=== PATIENT | male | born 1985 | race Hispanic/Latino ===

== ENCOUNTER 2017-10-09 13:57 | Emergency (ER) | payer SELFPAY ==
[2017-10-09 15:08] LABS: #Basophils 0.1 thou/uL (0.0-0.2); #Eosinphils 0.4 thou/uL (0.0-0.7); #Monocytes 0.7 thou/uL (0.11-0.59); #Neutrophils 5.9 thou/uL (1.40-6.50); %Basophils 0.7 % (0.0-1.0); %Eosinophils 4.4 % (0.0-10.0); %Lymphocytes 22.2 % (21.0-51.0); %Neutrophils 64.7 % (42.0-75.0); Hemoglobin 14.3 g/dL (14.0-18.0); Mean Corpuscular HGB CONC 34.2 g/dL (32.0-36.0); Mean Corpuscular Hemoglobin 27.7 pg (27.0-31.0); Mean Corpuscular Volume 80.9 fL (78.0-98.0); Mean Platelet Volume 6.6 fL (7.4-10.4); Platelet Count 278 thou/uL (130-400); RBC Distribution Width 12.2 % (11.5-14.5); Red Blood Cell (RBC) Count 5.18 mill/uL (4.70-6.10); White Blood Cell (WBC) Count 9.1 thou/uL (4.8-10.8)
[2017-10-09 15:30] LABS: ALT (SGPT) 37 U/L (8-55); AST (SGOT) 20 U/L (5-34); Alkaline Phosphatase 84 U/L (40-150); Anion Gap 14 mmol/L (10-20); BUN (Urea Nitrogen) 7 mg/dL (8.9-20.6); Bilirubin, Total 0.3 mg/dL (0.2-1.2); Calc. Creatinine Clearance 0 mL/min (70-130); Calcium 8.7 mg/dL (7.8-10.44); Carbon Dioxide 23 mmol/L (22-29); Chloride 104 mmol/L (98-107); Estimated GFR-MDRD Greater than 90; Globulin 3.1 g/dL (2.4-3.5); Glucose 151 mg/dL (70-105); Lipase 27 U/L (8-78); Potassium 3.4 mmol/L (3.5-5.1); Protein, Total 7.1 g/dL (6.0-8.3); Sodium 138 mmol/L (136-145)
--- NOTE | 2017-10-09 15:50 | CT ---
CT OF THE ABDOMEN AND PELVIS WITH IV CONTRAST 10/09/17 PROVIDED CLINICAL HISTORY: Abdominal hernia. FINDINGS: The visualized lung bases are free of significant opacity. There is diffuse fatty infiltration of the liver. the solid abdominal organs demonstrate an otherwise unremarkable CT appearance. There is a 7.1 cm fat containing supraumbilical ventral abdominal hernia . There is altered attenuation involving the herniated fat. There is no fluid density present. There is no bowel dilatation, inflammatory intraperitoneal fat stranding, free fluid or free air apparent. The osseous structures demonstrate no concerning lytic or blastic lesions. IMPRESSION: 1. Fat containing supraumbilical ventral abdominal hernia with inflammatory change involving the herniated fat. 2. Fatty infiltration of the liver. POS: DYLAN
== END 2017-10-09 15:50 | disposition home or self-care (01) ==
LOC: ERS 13:57
DX: K45.8 Other specified abdominal hernia without obstruction or gangrene (principal); F17.210 Nicotine dependence, cigarettes, uncomplicated
CPT/HCPCS: 74177; 80053; 83605; 83690; 85025; 96374; J2270

== ENCOUNTER 2019-02-23 07:29 | Emergency (ER) | payer BC, SELFPAY | END 2019-02-23 08:00 | disposition home or self-care (01) | LOC: ERS 07:29 | DX: K46.9 Unspecified abdominal hernia without obstruction or gangrene (principal); J45.909 Unspecified asthma, uncomplicated; F17.210 Nicotine dependence, cigarettes, uncomplicated | CPT/HCPCS: 99283 ==

== ENCOUNTER 2019-03-15 07:12 | Outpatient (CLI) | payer BC ==
[2019-03-15 15:33] LABS: Hemoglobin 14.8 g/dL (14.0-18.0); Mean Corpuscular HGB CONC 33.8 g/dL (32.0-36.0); Mean Corpuscular Hemoglobin 27.6 pg (27.0-31.0); Mean Corpuscular Volume 81.9 fL (78.0-98.0); Mean Platelet Volume 7.5 fL (7.4-10.4); Platelet Count 252 thou/uL (130-400); RBC Distribution Width 12.3 % (11.5-14.5); Red Blood Cell (RBC) Count 5.33 mill/uL (4.70-6.10); White Blood Cell (WBC) Count 9.1 thou/uL (4.8-10.8)
[2019-03-15 15:41] LABS: Anion Gap 11 mmol/L (10-20); BUN (Urea Nitrogen) 9 mg/dL (8.9-20.6); Calc. Creatinine Clearance 0 mL/min (70-130); Calcium 9.3 mg/dL (7.8-10.44); Carbon Dioxide 30 mmol/L (22-29); Chloride 102 mmol/L (98-107); Estimated GFR-MDRD Greater than 90; Glucose 103 mg/dL (70-105); Potassium 3.7 mmol/L (3.5-5.1); Sodium 139 mmol/L (136-145)
--- NOTE | 2019-03-16 11:10 | EKG ---
Test Reason : Blood Pressure : / mmHG Vent. Rate : 064 BPM Atrial Rate : 064 BPM P-R Int : 126 ms QRS Dur : 108 ms QT Int : 402 ms P-R-T Axes : 056 058 062 degrees QTc Int : 414 ms Normal sinus rhythm with sinus arrhythmia Normal ECG No previous ECGs available Confirmed by DR. Richard VILLARREAL ([id number]) on 03/16/2019 11:10:12 AM Referred By: ANNA Confirmed By:DR. Richard VILLARREAL
== END 2019-03-15 07:13 | disposition home or self-care (01) ==
LOC: LABBT 07:12
PROVIDERS: ATTEND Specialist
DX: Z01.818 Encounter for other preprocedural examination (principal); K42.9 Umbilical hernia without obstruction or gangrene
CPT/HCPCS: 80048; 85027; 93005; 93010

== ENCOUNTER 2019-03-17 06:48 | Day surgery (SDC) | payer BC ==
[2019-03-15 13:53] VITALS: BMI 42.8
--- NOTE | 2019-03-16 09:22 | HP ---
HISTORY OF PRESENT ILLNESS: Arden Chairez is a 33-year-old chefat [facility], [facility], in oven table. He has had a supraumbilical hernia for several years, that has become bothersome to him. He is 307 pounds, 42 BMI. He did have a CAT scan in 2018, that demonstrated hernia as supraumbilical. He did report to the emergency room on 02/23/2019, for this, but I was able to reduce it and discharged home without imaging. He reports now for evaluation. The patient is . ALLERGIES: NONE. SOCIAL HISTORY: Tobacco, 1 to 2 cigarettes a day. Alcohol, rarely socially. MEDICATIONS: None routinely. PAST SURGICAL HISTORY: Meniscectomy at young age. PAST MEDICAL HISTORY: Noncontributory. He has occasional asthma, REVIEW OF SYSTEMS: Ten-point, noncontributory. PHYSICAL EXAMINATION: VITAL SIGNS: 307 pounds, 5 feet 11 inches, 42 BMI. Blood pressure 144/72, heart rate 108, temperature 97.5 degrees. HEAD, EARS, EYES, NOSE, AND THROAT: Unremarkable. LUNGS: Clear to auscultation. CARDIAC: Regular rate and rhythm without murmur or gallop. ABDOMEN: Soft and obese. Supraumbilical hernia. I can reduce this. There was a small defect. EXTREMITIES: Unremarkable. ASSESSMENT AND PLAN: Supraumbilical hernia at umbilical level. He has a large hernia mass with a small defect. We would recommend robot repair using mesh. I have educated him as an increased risk of recurrence is associated with obesity and smoking. He did report to the emergency room with incarceration. I think with a small defect, it is reasonable to repair this, but I have encouraged weight loss. He would be a good weight-loss surgery candidate, but he is not interested in that right now. He understands risk of infection, bleeding, reoperation, recurrence of hernia associated with robot mesh repair of hernia, and consents. We will plan that next week. Job ID: [id number]
[2019-03-17] MEDS ORDERED: Bupivacaine PF 0.5% 30 ML VIAL ONE (08:49)
[2019-03-17] MEDS ORDERED: Lidocaine 1% w/Epinephrine 1:100K 20 ML VIAL ONE (08:49)
[2019-03-17] MEDS ORDERED: Fentanyl 100 MCG/2 ML VIAL ONE ×2 (08:52→11:10)
[2019-03-17] MEDS ORDERED: Gabapentin 300 MG CAP ONE (08:56)
[2019-03-17] MEDS ORDERED: Ketorolac Tromethamine 30 MG/ML VIAL ONE (08:56)
[2019-03-17] MEDS ORDERED: Acetaminophen 500 MG TAB ONE (08:56)
[2019-03-17] MEDS ORDERED: Levofloxacin 500 mg/D5W 100 ml Premix Bag ONE (09:03)
[2019-03-17] MEDS ORDERED: Glycopyrrolate 0.2 MG/ML 5 ML SYRINGE ONE (09:52)
[2019-03-17] MEDS ORDERED: Rocuronium Bromide 10 MG/ML (10ML VIAL) ONE (09:52)
[2019-03-17] MEDS ORDERED: Ondansetron PF 4 MG/2 ML Vial ONE (09:52)
[2019-03-17] MEDS ORDERED: PROPOFOL 200 MG/20 ML VIAL ONE (09:52)
[2019-03-17] MEDS ORDERED: Metoclopramide HCl 10 MG/2 ML VIAL ONE (09:52)
[2019-03-17] MEDS ORDERED: Dexamethasone 20 MG/5 ML VIAL ONE (09:52)
--- NOTE | 2019-03-17 11:08 | OP ---
DATE OF PROCEDURE: 03/17/2019 PREOPERATIVE DIAGNOSES: 1. Morbid obesity. 2. Umbilical hernia, incarcerated to omentum, painful. POSTOPERATIVE DIAGNOSES: 1. Morbid obesity. 2. Umbilical hernia, incarcerated to omentum, painful. PROCEDURE PERFORMED: Robot laparoscopic repair of supraumbilical ventral hernia, 4 cm defect, with reinforcement with Ventralight 9-cm round mesh. ANESTHESIA: General, local with 0.5% Marcaine 30 mL mixed with 1% Xylocaine with epinephrine 30 mL. DESCRIPTION OF PROCEDURE: The patient was taken to the operating room, where under general anesthesia, abdomen was clipped of hair, prepared with ChloraPrep, and draped in routine fashion. Randhawa catheter placed at the beginning of the procedure and removed at the end. Left subxiphoid subcostal incision made. Pneumoperitoneum to 15 mmHg obtained with a Veress needle, replaced with an 11-mm balloon port and bilateral far lateral subcostal incisions were made and 8-mm port was placed. There was incarcerated omentum within the ventral supraumbilical hernia defect. Adhesions were taken down with the cautery. Omentum reduced. Hemostasis was gained with cautery. Fatty tissue cleared from the fascia and pneumoperitoneum reduced to 9 mmHg and fascial defect closed with continuous suture of #1 V-Loc suture. Once this was closed with overlapping to and fro sutures, Ventralight mesh was then secured to the abdominal wall with the coated side against the viscera, securing the mesh to the abdominal wall with continuous suture of 2-0 V-Loc suture. Once this was completed, needle was removed and pneumoperitoneum reduced. All instruments were removed and all skin incisions approximated with interrupted subdermal 4-0 Monocryl and [place] glue applied. Job ID: [id number]
== END 2019-03-17 14:30 | disposition home or self-care (01) ==
LOC: SDC 06:48
PROVIDERS: ATTEND Specialist
PROC: 0WUF4JZ Supplement Abdominal Wall with Synthetic Substitute, Percutaneous Endoscopic Approach (ICD-10-PCS; principal; 2019-03-17)
DX: K42.0 Umbilical hernia with obstruction, without gangrene (principal); F17.210 Nicotine dependence, cigarettes, uncomplicated; E66.01 Morbid (severe) obesity due to excess calories; Z68.41 Body mass index [BMI] 40.0-44.9, adult; Z88.0 Allergy status to penicillin; Z91.012 Allergy to eggs
CPT/HCPCS: C1781; J0690; J1100; J1885; J1956; J2405; J2704; J2765; J3010; S0020

== ENCOUNTER 2021-08-03 04:00 | Emergency (ER) | payer BC, SELFPAY ==
[2021-08-03] MEDS ORDERED: Ketorolac Tromethamine 30 MG/ML VIAL ONE (04:30)
[2021-08-03] MEDS ORDERED: Acetaminophen 500 MG TAB ONE (04:30)
[2021-08-03 05:04] LABS: #Basophils 0.1 thou/uL (0.0-0.2); #Eosinphils 0.3 thou/uL (0.0-0.7); #Lymphocytes 1.5 thou/uL (1.20-3.40); #Monocytes 0.9 thou/uL (0.11-0.59); #Neutrophils 7.7 thou/uL (1.40-6.50); %Basophils 0.6 % (0.0-1.0); %Eosinophils 2.9 % (0.0-10.0); %Lymphocytes 14.6 % (21.0-51.0); %Monocytes 8.4 % (0.0-10.0); %Neutrophils 73.5 % (42.0-75.0); Hemoglobin 15.1 g/dL (14.0-18.0); Mean Corpuscular HGB CONC 33.4 g/dL (32.0-36.0); Mean Corpuscular Hemoglobin 27.6 pg (27.0-31.0); Mean Corpuscular Volume 82.6 fL (78.0-98.0); Mean Platelet Volume 6.4 fL (7.4-10.4); Platelet Count 266 thou/uL (130-400); RBC Distribution Width 12.2 % (11.5-14.5); Red Blood Cell (RBC) Count 5.46 mill/uL (4.70-6.10); White Blood Cell (WBC) Count 10.4 thou/uL (4.8-10.8)
[2021-08-03 05:16] LABS: Bacteria/HPF None Seen HPF (None Seen); Bilirubin Negative (Negative); Blood, Urine 1+ (Negative); Calcium Oxalate Crystals Rare HPF (None Seen); Clarity Clear (Clear); Glucose, Urine (Dipstick) Normal (Negative); Ketone, Urine Negative (Negative); Leukocyte Negative Leu/uL (Negative); Mucous/LPF 1+ LPF (<2+); Nitrite Negative (Negative); Protein, Urine (Dipstick) Negative (Neg-Trace); Squamous Epithelial None Seen HPF (0-3); Urobilinogen Normal mg/dL (Less than 2); WBC/HPF 0-3 HPF (0-3)
[2021-08-03 05:26] LABS: ALT (SGPT) 21 U/L (8-55); AST (SGOT) 16 U/L (5-34); Alkaline Phosphatase 66 U/L (40-110); Anion Gap 13 mmol/L (10-20); BUN (Urea Nitrogen) 11 mg/dL (8.9-20.6); Bilirubin, Total 0.3 mg/dL (0.2-1.2); Calc. Creatinine Clearance 0 mL/min (70-130); Calcium 9.3 mg/dL (7.8-10.44); Carbon Dioxide 21 mmol/L (22-29); Chloride 106 mmol/L (98-107); Globulin 3.3 g/dL (2.4-3.5); Glucose 118 mg/dL (70-105); Lipase 20 U/L (8-78); Potassium 4.2 mmol/L (3.5-5.1); Protein, Total 7.3 g/dL (6.0-8.3); Sodium 136 mmol/L (136-145)
== END 2021-08-03 07:31 | disposition home or self-care (01) ==
LOC: ERS 04:00
DX: N13.2 Hydronephrosis with renal and ureteral calculous obstruction (principal); K42.9 Umbilical hernia without obstruction or gangrene; J45.909 Unspecified asthma, uncomplicated; F17.210 Nicotine dependence, cigarettes, uncomplicated
CPT/HCPCS: 36415; 74176; 80053; 81003; 81015; 83690; 85025; 96372; J1885